=== PATIENT | female | born 2000 | race Two or more races ===

== ENCOUNTER 2022-03-07 22:34 | Emergency (ER) | payer MEDICAID, OTHER ==
[~2022-03-07] VITALS: Ht 154.9 cm; Wt 60.0 kg
[2022-03-07] MEDS ORDERED: CEPH-510 PO (22:58)
[2022-03-07] MEDS ORDERED: IOHEXOL 350 MG/ML 100ML IJ ONE (23:37)
[2022-03-07] MEDS ORDERED: MORPHINE SULFATE 4 MG/ML SYR/VIAL IV ONE (23:45)
[2022-03-07] MEDS ORDERED: ONDANSETRON HCL 4 MG/2 ML VIAL IV ONE (23:45)
[2022-03-08] MEDS ORDERED: KETAMINE 50mg/ML 10ml Vial (500mg/10ml) IV ONE (01:30)
[2022-03-08] MEDS ORDERED: cefTRIAXone 1GM/50ML D5W 50 ML IV ONE (02:30)
[2022-03-08 03:30] VITALS: BP 143/92
== END 2022-03-08 03:51 | disposition short-term general hospital (02) ==
LOC: ER 22:34 → EDBD 22:34 → ER 03-08 03:51
DX: S82.891A Other fracture of right lower leg, initial encounter for closed fracture (principal); S93.04XA Dislocation of right ankle joint, initial encounter; S51.811A Laceration without foreign body of right forearm, initial encounter; S70.01XA Contusion of right hip, initial encounter; S70.212A Abrasion, left hip, initial encounter; S20.319A Abrasion of unspecified front wall of thorax, initial encounter; Z79.899 Other long term (current) drug therapy; V45.5XXA Car driver injured in collision with railway train or railway vehicle in traffic accident, initial encounter; Y93.89 Activity, other specified; Y92.89 Other specified places as the place of occurrence of the external cause; Y99.8 Other external cause status
CPT/HCPCS: 12001; 70450; 71260; 72125; 73590; 73600; 74177; 96374; 96375; 99285; J2270; J2405; Q9967